=== PATIENT | male | born 1995 | race Two or more races ===

== ENCOUNTER 2025-02-04 06:50 | Emergency (ER) | payer OTHER, SELFPAY ==
[2025-02-04 06:52] VITALS: BP 150/94; PULSE 75; RESP 20; TEMP 36.5; O2SAT 97; BMI 27.2
--- NOTE | 2025-02-04 07:01 | EDNOTE_ITS ---
<Statement entered by Nasra Ballard MD - 02/16/25 14:15> As co-signing physician, I was present and available for consult prn. I concur with the plan and care as documented by the midlevel provider. Lower Extremity Injury RME/HPI General Chief Complaint: Extremity Injury, Lower Stated Complaint: BILATERAL LEG PAIN Time Seen by Provider: 02/04/25 07:01 Arrival date/time: 02/04/25 06:50 29-year-old male with no significant medical problems active [employer] presents to the emergency department today stating that he was doing a run yesterday patient reports that he jumped and when he did so he developed pain in both upper legs patient reports no direct trauma patient reports throwing only approximately 1 mile. Patient reports no fever nausea vomiting no headache dizziness weakness Limitations: no limitations Related Data Previous Rx's ?Medication ?Instructions ?Recorded cyclobenzaprine 10 mg tablet 10 mg PO TID PRN muscle s pasm 10 02/04/25 days #30 tab-caps ibuprofen 800 mg tablet 800 mg PO TID PRN pain #30 t abs 02/04/25 Allergies Allergy/AdvReac Type Severity Reaction Status Date / Time No Known Allergies Allergy Verified 02/04/25 06:52 Review of Systems Review of Systems Systems Reviewed: All systems reviewed, normal except as documented Constitutional Constitutional: Reports system reviewed and no additional complaints, except as documented, Denies fever(s) and Denies headache(s) Eyes Eyes: Reports system reviewed and no additional complaints, except as documented and Denies blurry vision ENT Ears, Nose, Mouth, and Throat: Reports system reviewed and no additional complaints, except as documented, Denies headache(s), Denies nasal congestion and Denies nasal discharge Cardiovascular Cardiovascular: Reports system reviewed and no additional complaints, except as documented, Denies chest pain and Denies dyspnea Respiratory Respiratory: Reports system reviewed and no additional complaints, except as documented, Denies chest congestion, Denies cough and Denies dyspnea Gastrointestinal Gastrointestinal: Reports system reviewed and no additional complaints, except as documented and Denies abdominal pain Musculoskeletal Musculoskeletal: Reports system reviewed and no additional complaints, except as documented, Reports abnormal gait, Denies arthralgias, Denies numbness, Reports stiffness and Denies tingling Integumentary/Breasts Skin/Breast: Reports system reviewed and no additional complaints, except as documented and Denies rash Neurologic Neurologic: Reports system reviewed and no additional complaints, except as documented, Reports as per HPI, Reports abnormal gait, Denies headache(s), Denies numbness and Denies tingling Past Medical History Social History SMOKING STATUS: Never smoker ED Exam General Limitations: Present no limitations General appearance: Present alert and in no apparent distress Head Head exam: Present atraumatic, normocephalic and normal inspection Eye Eye exam: Present normal appearance, PERRL and EOMI ENT ENT exam: Present normal exam, normal oropharynx and mucous membranes moist Neck Neck exam: Present normal inspection, full ROM and trachea midline Chest Chest inspection: Present normal inspection and symmetric chest wall rise Respiratory Respiratory exam: Present normal lung sounds bilaterally Cardiovascular Cardiovascular exam: Present regular rate, normal rhythm and normal heart sounds Abdominal Exam Abdominal exam: Present soft and normal bowel sounds Extremities Exam Extremities exam: Present full ROM and tenderness; Absent joint swelling Back Exam Back exam: Present normal inspection and full ROM Neurological Exam Neurological exam: Present alert, oriented X3 and CN II-XII intact Psychiatric Psychiatric exam: Present normal affect and normal mood Skin Skin exam: Present warm, dry, intact and normal color Course Quality Measures none Vital Signs Vital signs: Vital Signs Temperature 97.7 F 02/04/25 06:52 Pulse Rate 75 02/04/25 06:52 Respiratory Rate 20 02/04/25 06:52 Blood Pressure 150/94 H 02/04/25 06:52 Pulse Oximetry (%) 97 02/04/25 06:52 Oxygen Delivery Method Room Air 02/04/25 06:52 O2 saturation 97% room air within normal limits Extremity Injury, Lower MDM Narrative MDM Narrative:: 29-year-old male with no significant medical problems active duty [employer] presents to the emergency department today stating that he was doing a run yesterday patient reports that he jumped and when he did so he developed pain in both upper legs patient reports no direct trauma patient reports throwing only approximately 1 mile. Patient reports no fever nausea vomiting no headache dizziness weakness On exam patient well-appearing patient does not appear ill or toxic no acute distress Based on symptomatology symptoms are consistent with tendon versus ligament versus muscle strain Patient is no acute bruising or swelling Patient will treat with ibuprofen and muscle relaxers I did explain to the patient should symptoms persist or worsen he needs to follow-up further evaluation with his commend Patient data External records reviewed:: None Clinical information provided by:: patient Social determinants that could affect healthcare access:: none Patient has the following chronic illnesses:: None How is presenting disease/condition affected by chronic disease/condition?: no chronic disease Evaluation data The following diagnostics were reviewed and interpreted by me:: other (specify) Lab and/or radiology exams considered but not ordered:: Considered not indicated Interpretation Summary: N/A Medications / Prescriptions Medications or Prescriptions considered but not ordered:: Rx given Medication administrations:: Rx given Consultations Consultation(s) initiated? (list below): No Diagnosis Extremity Injury, Lower Differential Diagnosis: other (Bilateral leg pain) Most likely diagnosis given after review of the tests above:: Bilateral leg pain Admission Indicated Admission indicated?: not indicated Admission Request Was there a request for admission?: No Disposition Plan Disposition Plan: Discharge Discharge Attestation Discharge Attestation: The patient and all family members were given an opportunity to ask questions and understood the discharge instructions. Discharge instructions specifically effects, indications for sooner follow up or return to the emergency department, and the expected course of current diagnosis. Patient condition: Stable Discharge Plan Plan Patient Disposition: HOME (Self Care) Discharge Disposition comment: Stable Prescriptions/Referrals Prescriptions/Med Rec: New cyclobenzaprine 10 mg tablet 10 mg PO TID PRN (Reason: muscle spasm) 10 Days Qty: 30 0RF ibuprofen 800 mg tablet 800 mg PO TID PRN (Reason: pain) Qty: 30 0RF Problem List Clinical Impression: Bilateral leg pain Patient/Caregiver Discharge Instructions Education Materials: ED Myalgias Additional Instructions: Please follow up with your primary care doctor in the next 24-48hrs for any worsening symptoms return here immediately Print Language: Moz[place]ican Stand Alone Forms: Roc[employer] Award Info., Work/School Release, Patient Portal Info Letter PA/DEE Supervising Physician HORTENCIA/DEE Supervising Physician: Dr ballard
== END 2025-02-04 07:44 | disposition home or self-care (01) ==
LOC: SERX 07:25
PROVIDERS: Emergency Provider Emergency Medicine
DX: M79.604 Pain in right leg (principal); M79.605 Pain in left leg
CPT/HCPCS: 99281